=== PATIENT | male | born 1950 | race Caucasian/White ===

== ENCOUNTER 2019-10-22 08:59 | Emergency (ER) | payer SELFPAY ==
[~2019-10-22] VITALS: Ht 165.1 cm; Wt 60.0 kg
[~2019-10-22 08:59] MED LIST: ALB0.5UD IH; ATOR40TA PO; ATR0.5NEB NEB; FLUT1AER INH; METO25TA6 PO; NITR0.4T51 SL
[2019-10-22] MEDS ORDERED: ziprasidone 20mg capsule PO SCH (09:20)
[2019-10-22 09:49] LABS: BASOPHILS # (AUTO) 0.1 X10'3 (0-0.2); BASOPHILS % (AUTO) 1.1 % (0-1); EOSINOPHILS % (AUTO) 0.2 % (0-6); HEMATOCRIT 44.5 % (42.0-52.0); HEMOGLOBIN 15.1 g/dl (14.0-17.9); LYMPHOCYTES # (AUTO) 1.4 X10'3 (1.1-4.8); LYMPHOCYTES % (AUTO) 13.3 % (21-51); MEAN CORPUSCULAR HEMOGLOBIN 32.5 PG (27.0-31.0); MEAN CORPUSCULAR HGB CONC 33.9 g/dL (33.0-36.5); MEAN CORPUSCULAR VOLUME 95.9 FL (78-98); MEAN PLATELET VOLUME 8.4 FL (7.4-10.4); MONOCYTES % (AUTO) 9.2 % (2-12); NEUTROPHILS # (AUTO) 8.1 X10'3 (1.8-7.7); NEUTROPHILS % (AUTO) 76.2 % (42-75); PLATELET COUNT 238 X10'3 (140-440); RED BLOOD COUNT 4.64 X10'6 (4.70-6.10); RED CELL DISTRIBUTION WIDTH 13.9 % (11.5-14.5); WHITE BLOOD COUNT 10.6 X10'3 (4.5-11.0)
[2019-10-22 10:05] LABS: ALANINE AMINOTRANSFERASE 28 U/L (12-78); ALBUMIN 4.5 G/DL (3.4-5.0); ALBUMIN/GLOBULIN RATIO 1.5 (1.1-1.5); ALKALINE PHOSPHATASE 52 IU/L (46-116); ANION GAP 11 (8-16); ASPARTATE AMINO TRANSFERASE 21 U/L (10-37); BILIRUBIN,TOTAL 0.8 MG/DL (0.1-1.0); BLOOD UREA NITROGEN 33 MG/DL (7-18); BUN/CREATININE RATIO 25.6 (5.4-32.0); CALCIUM 9.6 MG/DL (8.5-10.1); CHLORIDE 104 MMOL/L (99-107); CREATININE 1.29 MG/DL (0.60-1.10); GLUCOSE 129 MG/DL (70-104); POTASSIUM 4.5 MMOL/L (3.5-5.1); SODIUM 140 MMOL/L (135-145); TOTAL CARBON DIOXIDE 25.4 MMOL/L (24-32); TOTAL PROTEIN 7.6 G/DL (6.4-8.2); eGFR 55 ML/MIN
[2019-10-22 10:14] LABS: ETHANOL < 0.010 GM/DL (0.0-0.010)
[2019-10-22] MEDS ORDERED: ziprasidone 20mg capsule PO ONE (10:35)
[2019-10-22] MEDS ORDERED: haloperidol lactate 5mg/ml inj ONE (10:44)
[2019-10-22] MEDS ORDERED: LORazepam 2 mg/ml vial ONE (10:44)
[2019-10-22] MEDS ORDERED: diphenhydrAMINE 50 mg/ml inj ONE (10:44)
[2019-10-22] MEDS ORDERED: LORazepam 2 mg/ml vial IM ONE (10:45)
[2019-10-22] MEDS ORDERED: haloperidol lactate 5mg/ml inj IM ONE (10:45)
[2019-10-22] MEDS ORDERED: diphenhydrAMINE 50 mg/ml inj IM ONE (10:45)
--- NOTE | 2019-10-22 10:56 | NUR ---
Patient suddenly became agressive at staff and charged at [facility] and then slammed several times against the glass windows and making verbal threats. Spoke to Dr. Paul and heydi, haldol, and ativan is given as a verbal. Medications over-ridden from the omnicell to prevent any injury to patient or staff. All verbal de-escalation attempts were unsuccessful from several staff members.
[2019-10-22 11:45] LABS: CLARITY,URINE CLOUDY (Clear); COLOR,URINE YELLOW (Yellow); GLUCOSE, URINE NEGATIVE (Neg); KETONES,URINE NEGATIVE (Neg); LEUKOCYTE ESTERASE ,URINE NEGATIVE (Neg); NITRITES, URINE NEGATIVE (Neg); OCCULT BLOOD,URINE NEGATIVE (Neg); PH,URINE 5.5 (4.8-8.0); PROTEIN,URINE 100 mg/dl (Neg); UROBILINOGEN,URINE 0.2 E.U/dL (0.2-1.0)
[2019-10-22 11:51] LABS: UA COLLECTION TYPE CLN CATCH MIDSTREAM
[2019-10-22 11:52] LABS: BACTERIA,URINE 1+ /HPF (Neg); CAL OXALATE CRYSTALS FEW /HPF (NEGATIVE); MUCUS STRANDS FEW /LPF (Neg); RBC,URINE 0-2 /HPF (0-2); SQUAMOUS EPITHELIAL CELL,UR FEW /LPF (FEW); URINE AMPHETAMINE SCREEN NEGATIVE (Neg); URINE BARBITUATE SCREEN NEGATIVE (Neg); URINE BENZODIAZEPINES SCREEN NEGATIVE (Neg); URINE CANNABINOID SCREEN POSITIVE (Neg); URINE COCAINE SCREEN NEGATIVE (Neg); URINE METHADONE SCREEN NEGATIVE (Neg); URINE OPIATE SCREEN NEGATIVE (Neg); URINE PHENCYCLIDINE SCREEN NEGATIVE (Neg); WBC,URINE 0-4 /HPF (0-4)
[2019-10-22 11:54] LABS: AMORPHOUS URATES 3+
[2019-10-22 13:31] VITALS: BP 103/57
== END 2019-10-22 15:04 | disposition home or self-care (01) ==
LOC: ER 08:59
DX: F29 Unspecified psychosis not due to a substance or known physiological condition (principal); N28.9 Disorder of kidney and ureter, unspecified; F12.90 Cannabis use, unspecified, uncomplicated; Z88.8 Allergy status to other drugs, medicaments and biological substances; Z79.899 Other long term (current) drug therapy
CPT/HCPCS: 36415; 80053; 80305; 80320; 81001; 84443; 84484; 85025; 93005; 96372; 99285; J1200; J1630; J2060

== ENCOUNTER 2019-11-09 00:06 | Emergency (ER) | payer MEDICARE, OTHER ==
[~2019-11-09] VITALS: Ht 177.8 cm; Wt 75.0 kg
[2019-11-09] MEDS ORDERED: LORazepam 2 mg/ml vial IM ONE (00:15)
[2019-11-09] MEDS ORDERED: diphenhydrAMINE 50 mg/ml inj IM ONE (00:15)
[2019-11-09] MEDS ORDERED: haloperidol lactate 5mg/ml inj IM ONE (00:15)
--- NOTE | 2019-11-09 00:15 | NUR ---
The patient continues since he walked through the door, to belittle the officer that has brought him in. He is rambling about his rights and will not let the officer interject any conversation or text to the patients' questions. When he will get a word in the patient belittles him more.
--- NOTE | 2019-11-09 00:36 | NUR ---
pt keeps hollaring that he is being held here under false charges and that this makes his 3rd 5150 in less than 6 months. He continues to not let any staff get any word in otherwise. I cleaned his wound to his right wrist, there is an abrasion there, bandaide to the site.
--- NOTE | 2019-11-09 00:50 | NUR ---
PT IS QUIET
[2019-11-09 00:55] LABS: BASOPHILS # (AUTO) 0.1 X10'3 (0-0.2); BASOPHILS % (AUTO) 0.7 % (0-1); EOSINOPHILS # (AUTO) 0.1 X10'3 (0-0.9); EOSINOPHILS % (AUTO) 0.4 % (0-6); HEMOGLOBIN 14.4 g/dl (14.0-17.9); LYMPHOCYTES % (AUTO) 15.4 % (21-51); MEAN CORPUSCULAR HEMOGLOBIN 32.4 PG (27.0-31.0); MEAN CORPUSCULAR HGB CONC 33.4 g/dL (33.0-36.5); MEAN CORPUSCULAR VOLUME 96.9 FL (78-98); MEAN PLATELET VOLUME 8.2 FL (7.4-10.4); MONOCYTES # (AUTO) 1.1 X10'3 (0-0.9); MONOCYTES % (AUTO) 8.7 % (2-12); NEUTROPHILS # (AUTO) 9.9 X10'3 (1.8-7.7); NEUTROPHILS % (AUTO) 74.8 % (42-75); PLATELET COUNT 228 X10'3 (140-440); RED BLOOD COUNT 4.43 X10'6 (4.70-6.10); RED CELL DISTRIBUTION WIDTH 14.1 % (11.5-14.5); WHITE BLOOD COUNT 13.2 X10'3 (4.5-11.0)
[2019-11-09 01:06] LABS: ALANINE AMINOTRANSFERASE 33 U/L (12-78); ALBUMIN 4.1 G/DL (3.4-5.0); ALBUMIN/GLOBULIN RATIO 1.2 (1.1-1.5); ALKALINE PHOSPHATASE 52 IU/L (46-116); ANION GAP 11 (8-16); ASPARTATE AMINO TRANSFERASE 23 U/L (10-37); BILIRUBIN,TOTAL 0.7 MG/DL (0.1-1.0); BLOOD UREA NITROGEN 25 MG/DL (7-18); BUN/CREATININE RATIO 19.4 (5.4-32.0); CALCIUM 9.6 MG/DL (8.5-10.1); CHLORIDE 108 MMOL/L (99-107); CREATININE 1.29 MG/DL (0.60-1.10); GLUCOSE 104 MG/DL (70-104); POTASSIUM 4.4 MMOL/L (3.5-5.1); SODIUM 144 MMOL/L (135-145); TOTAL CARBON DIOXIDE 25.4 MMOL/L (24-32); TOTAL PROTEIN 7.6 G/DL (6.4-8.2); eGFR 55 ML/MIN
[2019-11-09 01:14] LABS: ETHANOL < 0.010 GM/DL (0.0-0.010)
[2019-11-09 02:08] LABS: CLARITY,URINE CLEAR (Clear); COLOR,URINE YELLOW (Yellow); GLUCOSE, URINE NEGATIVE (Neg); KETONES,URINE TRACE mg/dl (Neg); LEUKOCYTE ESTERASE ,URINE NEGATIVE (Neg); NITRITES, URINE NEGATIVE (Neg); OCCULT BLOOD,URINE TRACE-INTACT (Neg); PROTEIN,URINE TRACE mg/dl (Neg); UROBILINOGEN,URINE 0.2 E.U/dL (0.2-1.0)
[2019-11-09 02:15] LABS: UA COLLECTION TYPE STRAIGHT CATH
[2019-11-09 02:16] LABS: BACTERIA,URINE FEW /HPF (Neg); RBC,URINE 0-2 /HPF (0-2); SQUAMOUS EPITHELIAL CELL,UR FEW /LPF (FEW); WBC,URINE 0-4 /HPF (0-4)
[2019-11-09 02:17] LABS: URINE AMPHETAMINE SCREEN NEGATIVE (Neg); URINE BARBITUATE SCREEN NEGATIVE (Neg); URINE BENZODIAZEPINES SCREEN NEGATIVE (Neg); URINE CANNABINOID SCREEN POSITIVE (Neg); URINE COCAINE SCREEN NEGATIVE (Neg); URINE METHADONE SCREEN NEGATIVE (Neg); URINE OPIATE SCREEN NEGATIVE (Neg); URINE PHENCYCLIDINE SCREEN NEGATIVE (Neg)
[2019-11-09] MEDS ORDERED: CLOP75TA35 PO (02:24)
--- NOTE | 2019-11-09 03:13 | NUR ---
Pt is resting comfortably at this time, sleeping on his right side with visible respirations. Pt is in direct line of sight of the nursing station.
--- NOTE | 2019-11-09 05:20 | NUR ---
Pt is resting comfortably on his back, sleeping, with visible respirations. He is in direct line of sight of the nursing station.
--- NOTE | 2019-11-09 07:44 | NUR ---
Patient ambulated to the Restroom W/ steady gait.
[2019-11-09] MEDS ORDERED: metoprolol tartrate 25mg tablet PO SCH (08:00)
[2019-11-09] MEDS ORDERED: clopidogrel 75mg tablet PO SCH (08:00)
--- NOTE | 2019-11-09 08:35 | NUR ---
Marychuy Nash, pt's , can be reached at [phone]
[2019-11-09] MEDS ORDERED: budesonide 0.5mg/2ml UD nebule IH SCH (09:00)
[2019-11-09] MEDS: albuterol 2.5 MG/3 ML nebule NEB SCH ×2 (09:00→15:00)
--- NOTE | 2019-11-09 09:40 | NUR ---
Mental health worker at bedside for interview.
--- NOTE | 2019-11-09 13:58 | NUR ---
pt brought back from main er to overflow ambulated with steady gate placed in bed 25 he said he is going to lay down and take a nap
--- NOTE | 2019-11-09 15:00 | NUR ---
PT ACCEPTED TO [facility].
--- NOTE | 2019-11-09 15:30 | NUR ---
in bed resting rise and fall of chest noted
--- NOTE | 2019-11-09 16:43 | NUR ---
in bed resting called asked how he was doing
[2019-11-09 19:56] VITALS: BP 131/77
[2019-11-10] MEDS ORDERED: CLOP75TA33 PO (05:13)
== END 2019-11-09 20:03 ==
LOC: ER 00:07
DX: F29 Unspecified psychosis not due to a substance or known physiological condition (principal); R45.1 Restlessness and agitation; Z88.8 Allergy status to other drugs, medicaments and biological substances; Z79.899 Other long term (current) drug therapy; F81.81 Disorder of written expression
CPT/HCPCS: 36415; 80053; 80305; 80320; 81001; 84443; 85025; 94760; 96372; 99285; J1200; J1630; J2060

== ENCOUNTER 2019-11-09 16:49 | Inpatient (IN) | payer MEDICARE, OTHER ==
[~2019-11-09] VITALS: Ht 177.8 cm; Wt 53.5 kg
[~2019-11-09 16:49] MED LIST changes: +CLOP75TA35 PO
[2019-11-09] MEDS ORDERED: LORazepam 1 MG tablet PO PRN (20:55)
[2019-11-09] MEDS ORDERED: hydrOXYzine 25 MG tablet PO PRN (20:55)
[2019-11-09] MEDS ORDERED: mag hydrox/Alum hydrox/simeth 30ml oral suspension PO PRN (20:55)
[2019-11-09] MEDS ORDERED: acetaminophen 325mg tablet PO PRN (20:55)
[2019-11-09] MEDS ORDERED: albuterol 2.5 MG/3 ML nebule NEB PRN (21:00)
[2019-11-09] MEDS ORDERED: nitroGLYCERIN 0.4mg SUBLingual tab SL PRN (21:00)
--- NOTE | 2019-11-09 21:27 | NUR ---
Admit Note: Pt admitted from [facility] ED for 5150 for gd/dts. Pt's called the police because pt was at her sisters house acting erratically and banging his head on the wall. Police reported that pt was making delusional statements and not making sense.
[2019-11-10] MEDS: albuterol 2.5 MG/3 ML nebule NEB SCH ×2 (02:44→08:51)
--- NOTE | 2019-11-10 02:45 | NUR ---
Patient stated a breathing treatment was not needed, he refused breathing treatment. Vitals were not taken at this time.
[2019-11-10] MEDS ORDERED: mag hydrox/Alum hydrox/simeth 30ml oral suspension PO PRN (04:45)
[2019-11-10] MEDS ORDERED: hydrOXYzine 25 MG tablet PO PRN (04:45)
[2019-11-10] MEDS ORDERED: magnesium hydroxide 30ml (MOM) UD suspension PO PRN (04:45)
[2019-11-10] MEDS ORDERED: haloperidol 5mg tablet PO PRN (04:45)
[2019-11-10] MEDS ORDERED: diphenhydrAMINE 25mg capsule PO PRN (04:45)
[2019-11-10] MEDS ORDERED: quetiapine 100mg tablet PO PRN (04:45)
[2019-11-10] MEDS ORDERED: LORazepam 1 MG tablet PO PRN (04:45)
[2019-11-10] MEDS ORDERED: acetaminophen 325mg tablet PO PRN ×2 (04:45)
[2019-11-10] MEDS ORDERED: loperamide 2mg capsule PO PRN (04:45)
[2019-11-10] MEDS ORDERED: traZODone 50mg tablet PO PRN (04:45)
[2019-11-10] MEDS ORDERED: CLOP75TA33 PO (05:13)
[2019-11-10] MEDS: ipratropium 0.5 MG/2.5ML nebule NEB SCH ×4 (07:00→19:00)
[2019-11-10 07:46] VITALS: BP 117/67
[2019-11-10] MEDS: atorvastatin 20mg tablet PO SCH (07:47)
[2019-11-10] MEDS: metoprolol tartrate 25mg tablet PO SCH ×2 (07:48→20:00)
[2019-11-10] MEDS: clopidogrel 75mg tablet PO SCH (07:49)
[2019-11-10] MEDS ORDERED: budesonide 0.5mg/2ml UD nebule IH SCH (09:00)
[2019-11-10] MEDS ORDERED: budesonide 0.5mg/2ml UD nebule IH PRN (13:20)
[2019-11-10] MEDS ORDERED: albuterol 2.5 MG/3 ML nebule NEB PRN (13:20)
[2019-11-10] MEDS ORDERED: ipratropium 0.5 MG/2.5ML nebule NEB PRN (13:30)
--- NOTE | 2019-11-10 15:33 | NUR ---
Nursing Progress Note: Saad Legal hold: 5150 Client on involuntary status for DTS/ GD Report received from Dian Perez RN with use of SBAR. Why are they here: Admit Note: Pt admitted from [facility] ED for 5150 for gd/dts. Pt's called the police because pt was at her sisters house acting erratically and banging his head on the wall. Police reported that pt was making delusional statements and not making sense. Assessment What has happened this shift: Client was awake and visible on the unit at shift change. No behavioral issues from prior shift. Client is bright and alert and oriented x 4. Client refused certain medications at med pass and RT was on unit and wanted to change breathing treatments to PRN as this client does not utilize at home. Social on unit with select staff and peers. Client presented for noon meal and was bright and interacted well with both staff as well as peers. He has been medication compliant and states he only uses breathing treatment, "once in a while" while at home and does not need them scheduled regularly. Mr. Carranza authorized breathing treatments to be scheduled PRN. S/I, H/I: Patient denies both. A/VH: Patient denies both. Sleep: ADL's: Independent Group attendance: Were meds taken: refused some medications and took others. See MAR Any med S/E: None observed or reported. Mental Status Exam Appearance: Clean, dressed in green hospital scrubs Eye contact: Good Behavior: Pleasant, cooperative Speech: Clear, normal rate/rhythm Mood: bright Affect: Congruent. Thought process: Linear Thought Content: wants to help on unit. Cognition: A&Ox4 Insight: Fair Judgment: Fair Interventions PRN's used: Therapeutic interventions: 1:1 therapeutic assessment, therapeutic conversation, unit orientation, active listening, medication administraion/education/monitoring, Q15 min safety checks. Restraints/seclusion/emergency medication:
[2019-11-10 20:00] VITALS: BP 140/61
[2019-11-10] MEDS ORDERED: lithium carbonate 150mg capsule PO SCH (22:37)
[2019-11-10] MEDS ORDERED: lithium carbonate 150mg capsule PO ONE (22:40)
--- NOTE | 2019-11-11 05:57 | NUR ---
Nursing Progress Note: Saad Legal hold: 5150 Client on involuntary status for DTS/ GD Report received fromVenu Trujillo RN with use of SBAR. Why are they here: Admit Note: Pt admitted from [facility] ED for 5150 for gd/dts. Pt's called the police because pt was at her sisters house acting erratically and banging his head on the wall. Police reported that pt was making delusional statements and not making sense. Assessment What has happened this shift: Patient A&O x4 taking a phone call with his . Later noted that pt. had been making racial remarks to "A" bed and so A bed changed out with another patient. Refused his metoprolol stating he only takes once a day at that dose. Social to other non black patients and staff members. Appeared anxious over his plan of care and at one point stated that we were not helping him. H/I: Patient denies both. A/VH: Patient denies both. Sleep: ADL's: Independent Group attendance: Were meds taken: refused some medications and took others. See MAR Any med S/E: None observed or reported. Mental Status Exam Appearance: Clean, dressed in green hospital scrubs Eye contact: Good Behavior: Pleasant, cooperative Speech: Clear, normal rate/rhythm Mood: bright Affect: Congruent. Thought process: Linear Thought Content: wants to help on unit. Cognition: A&Ox4 Insight: Fair Judgment: Fair Interventions PRN's used: Therapeutic interventions: 1:1 therapeutic assessment, therapeutic conversation, unit orientation, active listening, medication administraion/education/monitoring, Q15 min safety checks. Restraints/seclusion/emergency medication:
[2019-11-11 06:58] LABS: CHOLESTEROL 170 MG/DL (0-200); HDL CHOLESTEROL 64 MG/DL (35-60)
[2019-11-11 06:59] LABS: CHOL/HDL RATIO 2.7 (0.00-4.99); LDL CHOLESTEROL 90 MG/DL (50-100); TRIGLYCERIDES 49 MG/DL (20-135)
[2019-11-11 07:03] LABS: HEMOGLOBIN A1C 5.8 % (4.5-6.2)
[2019-11-11] MEDS: metoprolol tartrate 25mg tablet PO SCH ×2 (08:00→20:11)
[2019-11-11] MEDS: clopidogrel 75mg tablet PO SCH (08:00)
[2019-11-11 08:12] VITALS: BP 100/72
[2019-11-11] MEDS: atorvastatin 20mg tablet PO SCH (08:56)
--- NOTE | 2019-11-11 10:00 | NUR ---
Group Therapy: Process Group This Clinicians goals for this process group were as follows: (1) Ask scaling questions about Patients current anxiety, depression, and irritability symptoms as a check-in. (2) Share psychoeducation about emotional escalation as it relates to stress and negative symptoms, Fight, flight, freeze. (3) Share psychoeducation on principles of mindfulness and emotional relaxation techniques that Patients may utilize to reduce the acuity of unwanted emotional escalation. (4) Provide psychoeducation on the STOPP acronym: Stop, Take a Breath, Observe the situation, Put things into perspective, and, Practice what works. (5) Process Clients thoughts and reflections on this topic within the group milieu. Patient identified experiencing the following levels of anxiety, depression, and anger/irritability while present in the group milieu. Anxiety: 06/07 Depression: 06/07 Anger/irritability: 06/07 Patient presented as open and cooperative within the group milieu. Patient was dressed in nondescript personal clothing within the group milieu. Patient presented as nonobtrusive. Patient was verbally engaged in the discussion on the STOPP method of reducing emotional escalation. He reported that when he was younger he was more likely to engage in the, "Fight," response to stressful situations. Now, however, that he is older, Patient reported that he attempts to avoid, or, "Flee," stressful situations. Jomar Morton MA, ELIU Addendum: 11/11/19 at 1145 by Jomar Morton SS Amended: Links added.
--- NOTE | 2019-11-11 16:24 | NUR ---
NURSING PROGRESS NOTE Legal hold: 5150 Client on involuntary status for DTS/ GD Report received from RN with use of SBAR. Why are they here: Pt admitted from [facility] ED for 5150 for gd/dts. Pt's called the police because pt was at her sisters house acting erratically and banging his head on the wall. Police reported that pt was making delusional statements and not making sense. Assessment What has happened this shift: Awake and talking with others at change of shift. Pressured speech wanting all needs met instantly, if has to wait becomes upset and argumentative. "I'm paying for this visit myself and you're not waiting on me." Refused Lopressor and Plavix this morning stating, I don't need those (BP was low at the time), asked for double portions which was ordered. Labile mood, angry, argumentative and unreasonable with this nurse and then 2 minutes later with Provider stated, "I've never been better, its great! My knows now everything is her fault, I feel better than ever!!" Apologizes later to this nurse and touches nurse on the arm. S/I, H/I: Denies A/VH: Denies Sleep: None ADL's: Independent Group attendance: yes Were meds taken: refused some medications and took others. Any med S/E: None observed or reported. Mental Status Exam Appearance: Clean and neat Eye contact: Good Behavior: Labile Speech: Clear, normal rate/rhythm Mood: Labile Affect: angry, anxious and then happy, positive and euphoric Thought process: Linear Thought Content: getting his needs met Cognition: Alert Insight: poor Judgment: Fair Interventions PRN's used:None Therapeutic interventions: 1:1 therapeutic assessment, therapeutic conversation, unit orientation, active listening, medication administration/education/monitoring, Q15 min safety checks. Restraints/seclusion/emergency medication:None Justification of Continued inpatient treatment: Requires interruption of current crisis, medication adjustments, and a safe and supportive environment to prevent readmission.
[2019-11-11 20:27] VITALS: BP 124/59
[2019-11-11] MEDS ORDERED: lithium carbonate 150mg capsule PO SCH (21:00)
--- NOTE | 2019-11-11 23:12 | NUR ---
NURSING PROGRESS NOTE Legal hold: 5150 Client on involuntary status for DTS/ GD Report received from RN with use of SBAR. Why are they here: Pt admitted from [facility] ED for 5150 for gd/dts. Pt's called the police because pt was at her sisters house acting erratically and banging his head on the wall. Police reported that pt was making delusional statements and not making sense. Assessment What has happened this shift: Patient was awake and in the art talking with his peers at the statrt of the shift. Pt was calm and cooperative. 1:1 at bedside pt denies any SI/HI or AH/VH. Pt was med compliant and said he is more comfortable with his new room mate. Made some phone calls and had no issues. S/I, H/I: Denies A/VH: Denies Sleep: None ADL's: Independent Group attendance: yes Were meds taken: yes Any med S/E: None observed or reported. Mental Status Exam Appearance: Clean and neat Eye contact: Good Behavior: Labile Speech: Clear, normal rate/rhythm Mood: Labile Affect: angry, anxious and then happy, positive and euphoric Thought process: Linear Thought Content: getting his needs met Cognition: Alert Insight: poor Judgment: Fair Interventions PRN's used:None Therapeutic interventions: 1:1 therapeutic assessment, therapeutic conversation, unit orientation, active listening, medication administration/education/monitoring, Q15 min safety checks. Restraints/seclusion/emergency medication:None Justification of Continued inpatient treatment: Requires interruption of current crisis, medication adjustments, and a safe and supportive environment to prevent readmission.
[2019-11-12] MEDS: ipratropium 0.5 MG/2.5ML nebule NEB SCH ×3 (07:00→16:16)
[2019-11-12] MEDS: atorvastatin 20mg tablet PO SCH (07:01)
[2019-11-12] MEDS: metoprolol tartrate 25mg tablet PO SCH (07:02)
[2019-11-12] MEDS: clopidogrel 75mg tablet PO SCH (07:03)
--- NOTE | 2019-11-12 07:11 | NUR ---
REFUSING MEDS Patient refusing Plavix and a.m. dose of Lopressor for second day in a row. States he does not take Plavix anymore and only needs Lopressor once a day at bedtime. JOSE Logan notified. Current VS+ 97.7, 60, 18, 113/65, 99%.
[2019-11-12 07:29] VITALS: BP 113/65
--- NOTE | 2019-11-12 10:00 | NUR ---
Group Therapy: Process Group This Clinicians goals for this process group were as follows: (1) Ask scaling questions about Patients current anxiety, depression, and irritability symptoms as a check-in. (2) Share psychoeducation about automatic thoughts and cognitive distortions. (3) Share psychoeducation on CBT thought-stopping and, thought-reframing. (4) Discuss strategies for identifying negative, unhelpful, and/or irrational thoughts as quickly as possible to avoid unwanted escalation of mental health symptoms. (5) Process Clients thoughts and reflections on this topic within the group milieu. Patient identified experiencing the following levels of anxiety, depression, and anger/irritability while present in the group milieu. Anxiety: 07/08 Depression: 06/07 Anger/irritability: 06/07 Patient presented as open and cooperative within the group milieu. Patient was dressed in a nondescript, black, long-sleeved t-shirt, and blue mario jeans that were appropriate for the situation. Patient presented as verbally engaged and was nonobtrusive within the group milieu. Patient frequently participated in the discussion on automatic thoughts, thinking errors, and thought-stopping, and thought-reframing interventions. offering timely and insightful comments that were productive to the process group. Patient acknowledged in session that he had been able to practice healthy patterns of thinking for the majority of his life; however, he noted that he had been struggling during the past six months with some of the, "Bumps," that he had been experiencing in his life, which have been leading to increases in the acuity of his unwanted mental health symptoms. Jomar Morton MA, ELIU Addendum: 11/12/19 at 1139 by Jomar Morton SS Amended: Links added.
--- NOTE | 2019-11-12 15:33 | NUR ---
DCP-Family Meeting Presenting Issues: Pt's presented for family meeting today, to discuss pt's needs & progress while @ [facility]. Interventions: SS co-facilitated family meeting w/attending PA, per session, pt [facility] there. Pt's spouse would like for pt to return home but also expressed concerns that this is already the third [facility] admission in less than 30-days. Spouse also noted improvements in pt's mood-less irritable, less verbose. Plan: Pt to d/c home and f/u with [facility]. Annette Baker LCSW Addendum: 11/12/19 at 1605 by Annette MONACO Amended: Links added.
[2019-11-12] MEDS ORDERED: LITH300C PO (15:51)
--- NOTE | 2019-11-12 16:20 | NUR ---
Discharge Presenting Issues: Pt's scheduled to d/c this evening, spouse to sisal picker. Interventions: SS met w/pt and reviewed finalized dcp, highlighting follow-up appointments with [facility], recommendations for IOP and individual therapy services. Pt agreed to comply w/dcp. SS also had t/c with spouse, informed spouse of f/u appointments and encouraged her to review discharge instructions w/pt when he returns home. Spouse agreed to do so. Plan: pt to d/c this evening. Annette Baker LCSW Addendum: 11/12/19 at 1624 by Annette MONACO Amended: Links added.
--- NOTE | 2019-11-12 16:42 | NUR ---
DISCHARGE NOTE The patient was discharged at 1642. He left with all belongings, instructions, and prescriptions. Stated he has no suicidal or homicidal thoughts. He is happy to go home to and happy with discharge plan. He was escorted to the lobby by LAMAR Hadley.
== END 2019-11-12 16:52 | disposition home or self-care (01) | DRG 885 ==
LOC: ADULT MH 20:07
PROVIDERS: ADMIT Psychiatry & Neurology Psychiatry; ATTEND Psychiatry & Neurology Psychiatry
DX: F23 Brief psychotic disorder (principal); F43.25 Adjustment disorder with mixed disturbance of emotions and conduct; F90.9 Attention-deficit hyperactivity disorder, unspecified type; F63.81 Intermittent explosive disorder; I25.10 Atherosclerotic heart disease of native coronary artery without angina pectoris; E78.5 Hyperlipidemia, unspecified; J44.9 Chronic obstructive pulmonary disease, unspecified; F43.10 Post-traumatic stress disorder, unspecified; F17.210 Nicotine dependence, cigarettes, uncomplicated; S61.511A Laceration without foreign body of right wrist, initial encounter; X58.XXXA Exposure to other specified factors, initial encounter; Z78.1 Physical restraint status; Z79.02 Long term (current) use of antithrombotics/antiplatelets; I25.2 Old myocardial infarction; Z79.51 Long term (current) use of inhaled steroids; Z79.899 Other long term (current) drug therapy; Z95.5 Presence of coronary angioplasty implant and graft; Y93.89 Activity, other specified; Y92.89 Other specified places as the place of occurrence of the external cause; Y99.8 Other external cause status
CPT/HCPCS: 36415; 80053; 80061; 80305; 80320; 81001; 83036; 84443; 85025; 94760